=== PATIENT | female | born 1960 | race Caucasian/White ===

== ENCOUNTER 2018-06-28 02:00 | Observation (INO) | payer SELFPAY ==
[2018-06-28 02:41] LABS: Hemoglobin 7.7 g/dL (12.0-16.0); Mean Corpuscular HGB CONC 32.5 g/dL (32.0-36.0); Mean Corpuscular Hemoglobin 23.8 pg (27.0-31.0); Mean Corpuscular Volume 73.1 fL (78.0-98.0); Mean Platelet Volume 5.9 fL (7.4-10.4); Platelet Count 498 thou/uL (130-400); RBC Distribution Width 15.5 % (11.5-14.5); Red Blood Cell (RBC) Count 3.22 mill/uL (4.20-5.40); White Blood Cell (WBC) Count 5.7 thou/uL (4.8-10.8)
[2018-06-28 02:54] LABS: ALT (SGPT) 31 U/L (8-55); AST (SGOT) 57 U/L (5-34); Albumin 4.6 g/dL (3.5-5.0); Alkaline Phosphatase 102 U/L (40-150); Anion Gap 17 mmol/L (10-20); BUN (Urea Nitrogen) 5 mg/dL (9.8-20.1); Bilirubin, Total 0.2 mg/dL (0.2-1.2); Calc. Creatinine Clearance 0 mL/min (70-130); Calcium 9.8 mg/dL (7.8-10.44); Carbon Dioxide 21 mmol/L (22-29); Chloride 97 mmol/L (98-107); Estimated GFR-MDRD Greater than 90; Globulin 3.7 g/dL (2.4-3.5); Glucose 99 mg/dL (70-105); Magnesium 2.1 mg/dL (1.6-2.6); Potassium 3.6 mmol/L (3.5-5.1); Protein, Total 8.3 g/dL (6.0-8.3); Sodium 131 mmol/L (136-145)
[2018-06-28 03:00] LABS: #Basophils 0.1 thou/uL (0.0-0.2); #Eosinphils 0.2 thou/uL (0.0-0.7); #Lymphocytes 2.1 thou/uL (1.20-3.40); #Monocytes 0.7 thou/uL (0.11-0.59); #Neutrophils 2.7 thou/uL (1.40-6.50); %Eosinophils 3.3 % (0.0-10.0); %Lymphocytes 35.8 % (21.0-51.0); %Monocytes 12.3 % (0.0-10.0); %Neutrophils 46.6 % (42.0-75.0); Anisocytosis SLIGHT = 6-15 cells (100X) (0-5/hpf); MDiff Complete? YES; Microcytosis SLIGHT = 6-15 cells (100X) (0-5/hpf); PLT Morphology Comment Appears Adequate
[2018-06-28 03:38] LABS: Bilirubin Negative (Negative); Blood, Urine Negative (Negative); Clarity CLEAR (Clear); Glucose, Urine (Dipstick) Negative (Negative); Leukocyte Negative (Negative); Nitrite Negative (Negative); Protein, Urine (Dipstick) Negative (Neg-Trace); Specific Gravity, Urine 1.003 (1.002-1.036); Urobilinogen 0.2 mg/dL (0.2-1.0)
[2018-06-28 04:29] LABS: Alcohol 251 mg/dL (Less than 10); Iron 9 ug/dL (50-170); Iron Binding Capacity, Total 466 mcg/dL (265-497)
[2018-06-28 05:55] LABS: Folate (Folic Acid) 14.4 ng/mL (7.0-31.4)
[2018-06-28] MEDS: Sodium Chloride 0.9% 1,000 ML IV SCH ×2 (10:25→23:58)
[2018-06-28] MEDS ORDERED: Iron Sucrose Complex 500 MG in Sodium Chloride 0.9% 250 ML 250 ML IVPB SCH (13:15)
--- NOTE | 2018-06-28 13:35 | HP ---
REASON FOR ADMISSION: Severe symptomatic anemia. HISTORY OF PRESENT ILLNESS: The patient gives history of being tired from last 2 months. She is not able to sleep well as well. She normally donates blood 2 times a year. She had given 1 pint of blood in November. She tried to give another pint 2 weeks back when they refused because her hemoglobin was low. She has been donating blood from last 30 years or so and does this twice a year. She has known history of hemorrhoids. No heavy bleeding as such from her rectum from the hemorrhoids. Prior colonoscopy was 2-1/2 years ago which was normal. This was done in [facility]. The patient is menopausal. PAST MEDICAL/SURGICAL HISTORY: x1. Left wrist surgery. Colonoscopy done 2-1/2 years ago was normal. CURRENT MEDICATIONS: Takes a multivitamin pill and allergy pill. ALLERGIES: No known drug allergies. PERSONAL HISTORY: Drinks on social occasions. Does not abuse alcohol or drugs. 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 She is originally from [place], [place]. FAMILY HISTORY: Mother of lymphoma and its complications at the age of 59 years. Father of colon cancer at the age of 80 years. She is the youngest of five siblings, none of the siblings have cancer. She has a brother and 4 sisters. CODE STATUS: FULL. REVIEW OF SYSTEMS: The following complete review of systems was negative, unless otherwise mentioned in the HPI or below: Constitutional: Weight loss or gain, ability to conduct usual activities. Skin: Rash, itching. Eyes: Double vision, pain. ENT/Mouth: Nose bleeding, neck stiffness, pain, tenderness. Cardiovascular: Palpitations, dyspnea on exertion, orthopnea. Respiratory: Shortness of breath, wheezing, cough, hemoptysis, fever or night sweats. Gastrointestinal: Poor appetite, abdominal pain, heartburn, nausea, vomiting, constipation, or diarrhea. Genitourinary: Urgency, frequency, dysuria, nocturia. Musculoskeletal: Pain, swelling. Neurologic/Psychiatric: Anxiety, depression. Allergy/Immunologic: Skin rash, bleeding tendency. PHYSICAL EXAMINATION: GENERAL: The patient is a 58-year-old female who is currently not in any acute distress. VITAL SIGNS: Blood pressure 112/76, pulse 88 per minute, respiratory rate 18 per minute, temperature 97.6 degrees Fahrenheit, saturating 100% on room air. NECK: Supple, no elevated JVD. HEENT: Eyes: Extraocular muscles intact. Pupils reacting to light. Oral cavity: Mucous membranes are moist. No exudates or congestion. CARDIOVASCULAR: S1, S2 heard. Regular rhythm. RESPIRATORY: Air entry 2+ bilateral. No rales or rhonchi. ABDOMEN: Soft, bowel sounds heard. No tenderness, rigidity or guarding. EXTREMITIES: No peripheral edema or calf tenderness. VASCULAR SYSTEM: Peripheral pulses 1+ bilateral. No ischemic ulcerations or gangrene. CENTRAL NERVOUS SYSTEM: No gross focal deficits noted. The patient is alert, awake, oriented well. PSYCHIATRIC: The patient's mood is euthymic. No hallucinations or delusions. LABORATORY AND X-RAY FINDINGS: H&H is 7.7 and 23.5. White count of 5.7, platelet count 498, MCV 73 with 46% neutrophils. Serum bicarbonate 21, BUN 5, creatinine 0.6, calcium is 9.8, albumin is 4.6, AST 57, ALT 31, alkaline phosphatase 102, total bilirubin 0.2, serum iron is 9, TIBC 466, ferritin is 12 , vitamin B12 is 526. Folic acid 14.4. Alcohol levels were 251. CLINICAL IMPRESSION AND PLAN: The patient will be under observation on medical floor for symptomatic anemia. The patient also has a strong family history of lymphoma and colon cancer as well. She has iron deficiency anemia. The patient does not take any NSAIDs. Also, she mentions that she drinks only on social occasions and yesterday she had two margaritas with her friends. She is currently receiving 1 unit of packed cells. A consult for Dr. Hsu has been placed and Dr. Solis for Oncology also has been placed. If patient can have outpatient workup, she can be discharged this evening. Again, this is dependent on what the specialists are planning today. We will closely monitor her on medical floor under observation status for now. DEANA
[2018-06-28 13:50] LABS: Anisocytosis SLIGHT = 6-15 cells (100X) (0-5/hpf); Band 2 % (5-11); Eosinophils 3 % (0-10); Hemoglobin 8.6 g/dL (12.0-16.0); Hypochromia SLIGHT = 6-15 cells (100X) (0-5/hpf); Lymphocytes 32 % (21-51); MDiff Complete? YES; Mean Corpuscular Hemoglobin 24.9 pg (27.0-31.0); Mean Corpuscular Volume 75.6 fL (78.0-98.0); Mean Platelet Volume 6.1 fL (7.4-10.4); Monocytes 6 % (0-10); Neutrophil 57 % (42-75); PLT Morphology Comment Appears Increased; Platelet Count 437 thou/uL (130-400); Polychromasia SLIGHT = 2-3 cells (100X) (0-2/hpf); RBC Distribution Width 16.7 % (11.5-14.5); Red Blood Cell (RBC) Count 3.44 mill/uL (4.20-5.40); White Blood Cell (WBC) Count 4.2 thou/uL (4.8-10.8)
--- NOTE | 2018-06-28 14:49 | CON ---
DATE OF CONSULTATION: 06/28/2018 REASON FOR CONSULTATION: Iron deficient anemia. HISTORY OF PRESENT ILLNESS: Ms. Valladares is a pleasant 58-year-old female, who complaints of fatigue o shay the past few months. She has had increasing shortness of breath. She denies any bleeding. She donates blood every 6 months. She went to the blood bank in anticipation of donating a unit of blood . She was told that her hematocrit was dangerously low, so she presented to the emergency room for e valuation. In the emergency room, her hemoglobin was 7.7, her MCV was 73.1, her platelet count was m ildly elevated at 498,000. She did have iron studies, which showed a ferritin of 12 and a TIBC of 46 6, and iron level of 9. She was admitted and transfused 1 unit of packed RBCs. The patient denies a ny melena or hematochezia or hemostasis. She has no menses cycle for the past 7 years. She has been donating blood every 6 months she states since she was as a teenager. She has minimal meat consumpt ion, primarily chicken and fish. Her fatigue has been present for the last 2-3 months. PAST MEDICAL HISTORY: None. PAST SURGICAL HISTORY: and wrist surgery. ALLERGIES: No known drug allergies. HOME MEDICATIONS: None. FAMILY HISTORY: No history of anemia. SOCIAL HISTORY: Single. No alcohol, tobacco, or illicit drug use. REVIEW OF SYSTEMS: Twelve-point review of systems is negative except for noted in HPI. PHYSICAL EXAMINATION: VITAL SIGNS: Temperature is 98.4, pulse is 77, respiratory rate 16, BP is 114/77. She is 99% on juan m air. GENERAL: A well-developed, well-nourished female, in no acute distress. HEENT: Normocephalic, atraumatic. Pupils equal and reactive to light. NECK: Supple. CARDIOVASCULAR: Regular rate and rhythm. LUNGS: Clear. ABDOMEN: Soft and nontender. There is no organomegaly. EXTREMITIES: No clubbing, cyanosis, or edema. SKIN: No rash. HEMATOLOGICAL: No petechia or purpura. NEUROLOGIC: Nonfocal. PSYCHIATRIC: The patient is alert and oriented and appropriate. PERTINENT LABORATORY DATA AND X-RAYS: Current WBC is 5.7, hemoglobin 7.7, hematocrit 23.5, platelet count is 498,000. Sodium 131, potassium 3.6, chloride 97, CO2 is 21, BUN is 5, creatinine 0.67, calc ium 9.8, magnesium 2.1. Iron 9, TIBC is 466, ferritin 12.35. Total bilirubin is 0.2, AST is 57, ALT is 31, alkaline phosphatase is 102, serum total protein 8.3, albumin 4.6, globulin 3.7. B12 is 526, folate is 1440. Urine is negative. Her plasma alcohol was 251. IMPRESSION: 1. Iron deficient anemia. 2. Reactive thrombocytosis. DISCUSSION: The patient had a colonoscopy approximately 2 years ago. She states it was normal. The re was no polyp removed. She has received 1 unit of packed RBCs. We will give her 1 dose of IV iron and she will start oral iron b.i.d. I feel this is a lot nutritional in nature, but we will agree w lara WHITFIELD's input. She will need to follow up with us in the outpatient setting to ensure that she has recovered from her iron deficiency. Thank you for the consult.
[2018-06-28] MEDS: Sodium Ferric Gluconate 250 MG, Admixture Fee 1 EACH in Sodium Chloride 0.9% 250 ML 250 ML IVPB SCH (15:50)
[2018-06-28] MEDS ORDERED: GoLYTELY 4,000 ml Bottle PO SCH (18:15)
[2018-06-28] MEDS: Ferrous Sulfate 325 MG TAB PO SCH (18:22)
[2018-06-28] MEDS: Pantoprazole 40 MG VIAL IVP SCH (21:23)
[2018-06-28] MEDS ORDERED: Melatonin 3 MG TAB PO PRN (22:47)
--- NOTE | 2018-06-29 00:19 | CON ---
DATE OF CONSULTATION: 06/28/2018 HISTORY OF PRESENT ILLNESS: The patient is a 58-year-old female, who was in her normal sta te of health until a few days prior to admission when she developed generalized fatigue and tiredness . She denies any melena or hematochezia. Denies any NSAID use. Denies any history of prior peptic ulcer disease. The patient did have a colonoscopy 2 years ago in [place]. The procedure was performed well. The prep was good, and she had no abnormalities. She has no menstrual periods. PAST MEDICAL HISTORY: Significant for a history of pancreatitis. PAST SURGICAL HISTORY: Includes a and toe amputation. SOCIAL HISTORY: The patient has a history of alcohol abuse according to the daughter. She did have an alcohol level of 251, which she said was from having couple margaritas. She does not smoke. FAMILY HISTORY: Negative for GI or liver disease. MEDICATIONS: No prescription medications. ALLERGIES: No known allergies. REVIEW OF SYSTEMS: Ten systems were reviewed and were negative except for above. PHYSICAL EXAMINATION: GENERAL: Shows a well-developed, well-nourished white female in no acute distress. VITAL SIGNS: Temperature 98.5, pulse 98, respiratory rate 20, blood pressure 119/74. HEENT: Unremarkable. NECK: Supple. CHEST: Clear. CARDIOVASCULAR: Regular rate and rhythm. ABDOMEN: Soft, nontender, without organomegaly or masses. Bowel sounds are present and normoactive. RECTAL: Deferred. EXTREMITIES: Normal. NEUROLOGIC: Nonfocal. LABORATORY DATA: On admission, showed a hemoglobin of 7.7, hematocrit 23.5, MCV of 73.1, platelet co unt 498. Chemistry shows sodium 131, CO2 of 21, AST of 57, globulin 3.7. Plasma alcohol is 251. ASSESSMENT: 1. Iron deficiency anemia - probably upper gastrointestinal source, as the patient had a normal colo noscopy 2 years ago. 2. 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 RECOMMENDATIONS: EGD in a.m.
[2018-06-29] MEDS: Sodium Ferric Gluconate 250 MG, Admixture Fee 1 EACH in Sodium Chloride 0.9% 250 ML 250 ML IVPB SCH (01:48)
[2018-06-29 05:28] LABS: Anion Gap 12 mmol/L (10-20); BUN (Urea Nitrogen) 4 mg/dL (9.8-20.1); Calc. Creatinine Clearance 84 mL/min (70-130); Calcium 9.6 mg/dL (7.8-10.44); Carbon Dioxide 23 mmol/L (22-29); Chloride 103 mmol/L (98-107); Estimated GFR-MDRD Greater than 90; Glucose 96 mg/dL (70-105); Potassium 3.7 mmol/L (3.5-5.1); Sodium 134 mmol/L (136-145)
[2018-06-29 06:12] LABS: Band 3 % (5-11); Eosinophils 4 % (0-10); Hemoglobin 8.4 g/dL (12.0-16.0); Lymphocytes 30 % (21-51); MDiff Complete? YES; Mean Corpuscular HGB CONC 33.1 g/dL (32.0-36.0); Mean Corpuscular Hemoglobin 25.2 pg (27.0-31.0); Mean Corpuscular Volume 76.1 fL (78.0-98.0); Mean Platelet Volume 6.4 fL (7.4-10.4); Monocytes 12 % (0-10); Neutrophil 51 % (42-75); Platelet Count 423 thou/uL (130-400); RBC Distribution Width 16.6 % (11.5-14.5); Red Blood Cell (RBC) Count 3.34 mill/uL (4.20-5.40); White Blood Cell (WBC) Count 6.8 thou/uL (4.8-10.8)
[2018-06-29] MEDS: Ferrous Sulfate 325 MG TAB PO SCH ×2 (08:18→19:00)
[2018-06-29] MEDS: Pantoprazole 40 MG VIAL IVP SCH ×2 (08:19→22:17)
--- NOTE | 2018-06-29 10:17 | PDOC.PN ---
- Subjective Encounter Start Date: 06/29/18 Encounter Start Time: 09:15 Subjective: feels better, no active bleeding - Objective MAR Reviewed: Yes Vital Signs & Weight: Vital Signs (12 hours) Temp Pulse Resp BP Pulse Ox 06/29/18 07:28 98.3 F 76 18 134/93 H 95 06/29/18 03:53 98.3 F 73 18 128/89 93 L Weight Admit Weight 126 lb 9.6 oz Weight 126 lb 9.6 oz I&O: 06/28/18 06/29/18 06/30/18 06:59 06:59 06:59 Intake Total 0 1000 Output Total 1000 3000 Balance -1000 -1999 Result Diagrams: 06/29/18 04:18 06/29/18 04:18 Phys Exam - Physical Examination HEENT: PERRLA, moist MMs Neck: no JVD, supple Respiratory: no wheezing, no rales Cardiovascular: RRR, no significant murmur Gastrointestinal: soft, no distention, positive bowel sounds Musculoskeletal: no edema, pulses present Neurological: non-focal, moves all 4 limbs Psychiatric: normal affect, A&O x 3 Dx/Plan (1) Anemia Code(s): D64.9 - ANEMIA, UNSPECIFIED Status: Acute Qualifiers: Anemia type: iron deficiency Iron deficiency anemia type: unspecified iron deficiency Qualified Code(s): D50.9 - Iron deficiency anemia, unspecified (2) Metabolic acidosis Code(s): E87.2 - ACIDOSIS Status: Acute (3) GI bleed Code(s): K92.2 - GASTROINTESTINAL HEMORRHAGE, UNSPECIFIED Status: Suspected - Plan for EGD today -: if above is normal may dc home -: oral iron bid -: Hb is 8g, recieved 1 unit prbc yesterday -: outpt f/u with onc if EGD is normal * . Review of Systems - Medications/Allergies Allergies/Adverse Reactions: Allergies Allergy/AdvReac Type Severity Reaction Status Date / Time No Known Allergies Allergy Verified 06/28/18 06:47 Medications: Current Medications Ferrous Sulfate (Feosol) 325 mg PO BID-WM MALLIKA Last Admin: 06/29/18 08:18 Dose: 325 mg Melatonin (Melatonin) 3 mg PO HS PRN PRN Reason: Insomnia Last Admin: 06/28/18 22:57 Dose: 3 mg Pantoprazole Sodium (Protonix) 40 mg IVP Q12HR MALLIKA Last Admin: 06/29/18 08:19 Dose: 40 mg Sodium Chloride (Flush - Normal Saline) 10 ml IVF Q12HR MALLIKA Last Admin: 06/29/18 08:20 Dose: 10 ml
[2018-06-29] MEDS ORDERED: Lidocaine 1% PF 5 ML VIAL ONE (11:37)
[2018-06-29] MEDS ORDERED: PROPOFOL 200 MG/20 ML VIAL ONE (11:37)
[2018-06-29] MEDS ORDERED: Ondansetron HCl/PF 4 MG/2 ML Vial IVP PRN (21:28)
[2018-06-29] MEDS ORDERED: Promethazine HCl 25 MG/ML VIAL SLOW IVP PRN (21:28)
[2018-06-29] MEDS ORDERED: Promethazine HCl 25 MG/ML VIAL IM PRN (21:28)
--- NOTE | 2018-06-30 03:50 | OP ---
PREOPERATIVE DIAGNOSIS: Iron deficiency anemia. PROCEDURE IN DETAIL: After informed consent was obtained, patient placed in the left lateral decubit us position. Anesthesia was administered per the Anesthesia Department. Forward-viewing endoscope w as inserted into the esophagus under direct visualization with ease and passed to the second portion of the duodenum with ease. Second portion of the duodenum and duodenal bulb were normal. The pyloru s, antrum, body, fundus, and cardia were normal. Random biopsies were taken of the second portion of the duodenum. The esophagus showed diffuse Patty esophagitis, but no other abnormalities. ASSESSMENT: 1. Patty esophagitis. 2. Otherwise, normal esophagogastroduodenoscopy. RECOMMENDATIONS: 1. Await histopathology. 2. Iron. 3. Diflucan. 4. Stable for discharge from GI standpoint.
[2018-06-30 07:56] LABS: #Basophils 0.1 thou/uL (0.0-0.2); #Eosinphils 0.2 thou/uL (0.0-0.7); #Lymphocytes 1.3 thou/uL (1.20-3.40); #Monocytes 0.9 thou/uL (0.11-0.59); #Neutrophils 4.3 thou/uL (1.40-6.50); %Basophils 1.1 % (0.0-1.0); %Eosinophils 2.8 % (0.0-10.0); %Lymphocytes 19.8 % (21.0-51.0); %Monocytes 13.2 % (0.0-10.0); %Neutrophils 63.2 % (42.0-75.0); Hemoglobin 9.1 g/dL (12.0-16.0); Mean Corpuscular HGB CONC 32.6 g/dL (32.0-36.0); Mean Corpuscular Hemoglobin 25.2 pg (27.0-31.0); Mean Corpuscular Volume 77.2 fL (78.0-98.0); Platelet Count 446 thou/uL (130-400); RBC Distribution Width 16.8 % (11.5-14.5); Red Blood Cell (RBC) Count 3.61 mill/uL (4.20-5.40); White Blood Cell (WBC) Count 6.8 thou/uL (4.8-10.8)
[2018-06-30 08:17] LABS: ALT (SGPT) 24 U/L (8-55); AST (SGOT) 29 U/L (5-34); Albumin 4.2 g/dL (3.5-5.0); Alkaline Phosphatase 101 U/L (40-150); Anion Gap 12 mmol/L (10-20); BUN (Urea Nitrogen) 4 mg/dL (9.8-20.1); Bilirubin, Total 0.3 mg/dL (0.2-1.2); Calc. Creatinine Clearance 79 mL/min (70-130); Calcium 9.9 mg/dL (7.8-10.44); Carbon Dioxide 24 mmol/L (22-29); Chloride 102 mmol/L (98-107); Estimated GFR-MDRD 85; Globulin 3.3 g/dL (2.4-3.5); Glucose 98 mg/dL (70-105); Potassium 3.4 mmol/L (3.5-5.1); Protein, Total 7.5 g/dL (6.0-8.3); Sodium 135 mmol/L (136-145)
[2018-06-30 08:36] LABS: HIV (1/2) Antibody/Antigen Non-Reactive (NonReactive); HIV 1/2 INDEX 0.12 S/CO (<1.00)
[2018-06-30] MEDS ORDERED: Fluconazole 100 MG TAB PO SCH (09:00)
[2018-06-30] MEDS: Ferrous Sulfate 325 MG TAB PO SCH (09:45)
[2018-06-30] MEDS: Pantoprazole 40 MG VIAL IVP SCH (09:46)
[2018-06-30 11:57] VITALS: BP 129/91; TEMP 97
== END 2018-06-30 15:10 | disposition home or self-care (01) ==
LOC: ERS 02:00 → 2SW 04:09
PROVIDERS: ADMIT Hospitalist; ATTEND Internal Medicine Gastroenterology
PROC: 0DB98ZX Excision of Duodenum, Via Natural or Artificial Opening Endoscopic, Diagnostic (ICD-10-PCS; principal; 2018-06-29)
DX: B37.81 Candidal esophagitis (principal); D50.9 Iron deficiency anemia, unspecified; D69.6 Thrombocytopenia, unspecified; E87.2 Acidosis; K92.2 Gastrointestinal hemorrhage, unspecified; Z79.899 Other long term (current) drug therapy
CPT/HCPCS: 36415; 36430; 80048; 80053; 80307; 81003; 82607; 82728; 82746; 83010; 83540; 83550; 83735; 85025; 86850; 86900; 86901; 87389; 88305; 96361; 96365; 96366; 96375; 96376; A4216; C9113; G0378; J2001; J2704; J2916; J7050; P9016

== ENCOUNTER 2018-09-06 19:05 | Emergency (ER) | payer SELFPAY ==
--- NOTE | 2018-09-06 21:22 | RAD ---
RIGHT FOOT THREE VIEWS: 09/06/18 INDICATION: Dropped a 14 lb. Bowling ball on the right foot. Now difficulty weightbearing. FINDINGS: There is moderate metatarsal prima varus and hallux valgus deformity. The toes are held in flexion sl ightly limiting exam. There are transversely oriented fractures involving the third and fourth digit metatarsal necks with slight plantar and lateral angulation. No additional fracture is grossly eviden t. IMPRESSION: Third and fourth digit metatarsal neck fractures with mild angulation. POS: KAT
== END 2018-09-06 20:36 | disposition home or self-care (01) ==
LOC: ERS 19:05
DX: S92.331A Displaced fracture of third metatarsal bone, right foot, initial encounter for closed fracture (principal); S92.341A Displaced fracture of fourth metatarsal bone, right foot, initial encounter for closed fracture; S90.31XA Contusion of right foot, initial encounter; W20.8XXA Other cause of strike by thrown, projected or falling object, initial encounter